=== PATIENT | female | born 1965 | race American Indian/Alaskan Native ===

== ENCOUNTER 2018-09-27 11:28 | Emergency (ER) | payer BC ==
[2018-09-27 11:51] VITALS: BP 143/109; PULSE 73; RESP 16; TEMP 97.8; O2SAT 100; BMI 29.6
--- NOTE | 2018-09-27 13:16 | RAD ---
Date of service: 09/27/2018 PROCEDURE: Left Wrist Radiographs. HISTORY: s/p fall - r/o fx COMPARISON: None. FINDINGS: BONES: Normal. No fracture. JOINTS: Normal. No dislocation. SOFT TISSUES: Normal. OTHER FINDINGS: None. IMPRESSION: Normal left wrist radiographs.
--- NOTE | 2018-09-27 13:17 | RAD ---
Date of service: 09/27/2018 PROCEDURE: Radiographs of the Left Forearm HISTORY: s/p fall - r/o fx COMPARISON: None available. TECHNIQUE: Frontal and lateral views obtained. FINDINGS: BONES: No fracture or destructive lesion. JOINT SPACES: Unremarkable. OTHER FINDINGS: None. IMPRESSION: Unremarkable radiographs of the left forearm.
--- NOTE | 2018-09-27 16:31 | ED PDOC ---
Arrival/HPI - General Chief Complaint: Trauma Historian: Patient - History of Present Illness Narrative History of Present Illness (Text): 09/27/18 16:32 A 53 year old female presents to the emergency department complaining of pain to left wrist and forearm s/p mechanical fall from earlier this morning. Patient notes she is able to move her wrist with some pain. Patient denies any head injury, loss of consciousness, or any other complaints. PMD: Dr. Harris Time/Duration: Other (earlier this morning) Symptom Onset: Sudden Symptom Course: Unchanged Activities at Onset: Light Context: Standing Past Medical History - Provider Review Nursing Documentation Reviewed: Yes - Past History Past History: No Previous - Tetanus Immunization Tetanus Immunization: Unknown - Cardiac Hx Cardiac Disorders: Yes Hx Hypertension: Yes - Pulmonary Hx Respiratory Disorders: No - Neurological Hx Neurological Disorder: No - HEENT Hx HEENT Disorder: Yes (using glasses) - Renal Hx Renal Disorder: No - Endocrine/Metabolic Hx Endocrine Disorders: No - Hematological/Oncological Hx Blood Disorders: No - Integumentary Hx Dermatological Disorder: No - Musculoskeletal/Rheumatological Hx Falls: No - Gastrointestinal Hx Gastrointestinal Disorders: Yes (HIATAL HERNIA,ENDOSCOPY,) - Genitourinary/Gynecological Hx Genitourinary Disorders: No - Psychiatric Hx Depression: No Hx Emotional Abuse: No Hx Physical Abuse: No Hx Substance Use: No - Surgical History Hx Hysterectomy: Yes - Anesthesia Hx Anesthesia: Yes Hx Anesthesia Reactions: No Hx Malignant Hyperthermia: No - Suicidal Assessment Feels Threatened In Home Enviroment: No Family/Social History - Physician Review Nursing Documentation Reviewed: Yes Family/Social History: No Known Family HX Smoking Status: Never Smoked Hx Alcohol Use: No Hx Substance Use: No Hx Substance Use Treatment: No Allergies/Home Meds Allergies/Adverse Reactions: Allergies morphine Allergy (Verified 09/27/18 12:07) NAUSEA Home Medications: Home Meds Medication Instructions Recorded Confirmed Lansoprazole [Prevacid] 30 mg PO DAILY 09/27/18 09/27/18 Valsartan/Hydrochlorothiazide 1 tab PO DAILY 09/27/18 09/27/18 [Valsartan and Hydrochlorothiazide 12.5 mg-80 ] Review of Systems - Review of Systems Respiratory: absent: SOB Musculoskeletal: Other (wrist pain) Neurological: absent: Headache, Other (loss of consciousness) Physical Exam Vital Signs Reviewed: Yes Vital Signs Temp Pulse Resp BP Pulse Ox 09/27/18 11:49 97.8 F 73 16 143/109 H 100 Temperature: Afebrile Blood Pressure: Hypertensive Pulse: Regular Respiratory Rate: Normal Mental Status: Positive for: Alert and Oriented X 3 ( ) - Systems Exam Head: Present: Atraumatic, Normocephalic Pupils: Present: PERRL Extroacular Muscles: Present: EOMI Conjunctiva: Present: Normal Respiratory/Chest: Present: Clear to Auscultation, Good Air Exchange. No: Respiratory Distress, Accessory Muscle Use Cardiovascular: Present: Regular Rate and Rhythm, Normal S1, S2. No: Murmurs Abdomen: No: Tenderness, Distention, Peritoneal Signs Upper Extremity: Present: NORMAL PULSES, Swelling (slight swelling to left wrist and distal left forearm), Capillary Refill < 2s Lower Extremity: Present: Normal Inspection. No: Edema Neurological: Present: GCS=15, CN II-XII Intact, Speech Normal Skin: Present: Warm, Dry, Normal Color. No: Rashes Psychiatric: Present: Alert, Oriented x 3, Normal Insight, Normal Concentration Medical Decision Making ED Course and Treatment: 09/27/18 16:32 Impression: 53 year old female presenting to the emergency room complaining of pain to the left wrist and forearm s/p mechanical fall. Plan: -- Splint Wrist 8" routine -- Reassess and disposition Prior Visits: Notes and results from previous visits were reviewed. Progress Notes: - RAD Interpretation Radiology Orders: 09/27/18 11:53 FOREARM LEFT [RAD] Stat WRIST, LEFT 3 VIEWS [RAD] Stat - Scribe Statement The provider has reviewed the documentation as recorded by the Gwendolynibda Marrero All medical record entries made by the Scribe were at my direction and personally dictated by me. I have reviewed the chart and agree that the record accurately reflects my personal performance of the history, physical exam, medical decision making, and the department course for this patient. I have also personally directed, reviewed, and agree with the discharge instructions and disposition. Disposition/Present on Arrival - Present on Arrival Any Indicators Present on Arrival: No History of DVT/PE: No History of Uncontrolled Diabetes: No Urinary Catheter: No History of Decub. Ulcer: No History Surgical Site Infection Following: None - Disposition Have Diagnosis and Disposition been Completed?: Yes Diagnosis: Left wrist sprain Disposition: HOME/ ROUTINE Disposition Time: 12:45 Condition: GOOD Discharge Instructions (ExitCare): Wrist Sprain (DC) Additional Instructions: MÓNICA LANDEROS, thank you for letting us take care of you today. The emergency medical care you received today was directed at your acute symptoms. If you were prescribed any medication, please fill it and take as directed. It may take several days for your symptoms to resolve. Return to the Emergency Department if your symptoms worsen, do not improve, or if you have any other problems. Please contact your doctor or call one of the physicians/clinics you have been referred to that are listed on the Patient Visit Information form that is included in your discharge packet. Bring any paperwork you were given at discharge with you along with any medications you are taking to your follow up visit. Our treatment cannot replace ongoing medical care by a primary care provider outside of the emergency department. Thank you for allowing the [facility] team to be part of your care today. Follow up with your primary care doctor in 5-7 days if symptoms still persist. Prescriptions: Ibuprofen [Motrin] 600 mg PO Q6 PRN #20 tab PRN Reason: Pain, Moderate (4-7) Forms: [employer] ([place]ian)
== END 2018-09-27 13:30 | disposition home or self-care (01) ==
LOC: ED 11:28
DX: S63.502A Unspecified sprain of left wrist, initial encounter (principal); W19.XXXA Unspecified fall, initial encounter; I10 Essential (primary) hypertension

== ENCOUNTER 2018-11-21 23:10 | Emergency (ER) | payer BC ==
[2018-11-21 23:11] VITALS: BMI 29.6
--- NOTE | 2018-11-21 23:33 | ED PDOC ---
Arrival/HPI - General Chief Complaint: Back Pain Time Seen by Provider: 11/21/18 23:17 Historian: Patient - History of Present Illness Narrative History of Present Illness (Text): 11/22/18 00:10 53 y/o female with PMH of HTN presents to the ED c/o left sided back pain x 2 days. Pain is located to the left lower back and flank that radiates to her mid lower back and occasionally up into the thoracic paraspinal muscles. States the pain feels like a cramping pain. Has not taken any medication for pain. Denies trauma/injury, SOB, chest pain, abdominal pain, urinary symptoms, vaginal bleeding or discharge, nausea, vomiting, saddle anesthesia, bowel/bladder incontinence, numbness, weakness, paresthesias, or any other associated symptoms. Past Medical History - Provider Review Nursing Documentation Reviewed: Yes - Past History Past History: No Previous - Infectious Disease Hx of Infectious Diseases: None - Tetanus Immunization Tetanus Immunization: Unknown - Cardiac Hx Cardiac Disorders: Yes Hx Hypertension: Yes - Pulmonary Hx Respiratory Disorders: No - Neurological Hx Neurological Disorder: No - HEENT Hx HEENT Disorder: Yes (using glasses) - Renal Hx Renal Disorder: No - Endocrine/Metabolic Hx Endocrine Disorders: No - Hematological/Oncological Hx Blood Disorders: No - Integumentary Hx Dermatological Disorder: No - Musculoskeletal/Rheumatological Hx Falls: No - Gastrointestinal Hx Gastrointestinal Disorders: Yes (HIATAL HERNIA,ENDOSCOPY,) - Genitourinary/Gynecological Hx Genitourinary Disorders: No - Psychiatric Hx Depression: No Hx Emotional Abuse: No Hx Physical Abuse: No Hx Substance Use: No - Surgical History Hx Hysterectomy: Yes - Anesthesia Hx Anesthesia: Yes Hx Anesthesia Reactions: No Hx Malignant Hyperthermia: No - Suicidal Assessment Feels Threatened In Home Enviroment: No Family/Social History - Physician Review Nursing Documentation Reviewed: Yes Family/Social History: No Known Family HX Smoking Status: Never Smoked Hx Alcohol Use: No Hx Substance Use: No Hx Substance Use Treatment: No Allergies/Home Meds Allergies/Adverse Reactions: Allergies morphine Allergy (Verified 11/21/18 23:29) NAUSEA Home Medications: Home Meds Medication Instructions Recorded Confirmed Lansoprazole [Prevacid] 30 mg PO DAILY 09/27/18 09/27/18 Valsartan/Hydrochlorothiazide 1 tab PO DAILY 09/27/18 09/27/18 [Valsartan and Hydrochlorothiazide 12.5 mg-80 ] Review of Systems - Review of Systems Constitutional: Normal. absent: Fevers Eyes: Normal. absent: Vision Changes Respiratory: Normal. absent: SOB, Cough Cardiovascular: Normal. absent: Chest Pain, Palpitations, Syncope Gastrointestinal: Normal. absent: Abdominal Pain, Nausea, Vomiting Genitourinary Female: absent: Dysuria, Frequency Musculoskeletal: Back Pain Skin: Normal. absent: Rash Neurological: Normal. absent: Headache, Dizziness Physical Exam Vital Signs Reviewed: Yes Temperature: Afebrile Blood Pressure: Normal Pulse: Regular Respiratory Rate: Normal Appearance: Positive for: Non-Toxic, Uncomfortable Pain Distress: Moderate Mental Status: Positive for: Alert and Oriented X 3 - Systems Exam Head: Present: Atraumatic, Normocephalic Pupils: Present: PERRL Extroacular Muscles: Present: EOMI Conjunctiva: Present: Normal Mouth: Present: Moist Mucous Membranes Neck: Present: Normal Range of Motion. No: Meningeal Signs Respiratory/Chest: Present: Clear to Auscultation, Good Air Exchange. No: Respiratory Distress, Accessory Muscle Use Cardiovascular: Present: Regular Rate and Rhythm, Normal S1, S2, Peripheal Pulses Present Abdomen: Present: Normal Bowel Sounds. No: Tenderness, Distention, Peritoneal S igns, Rebound, Guarding Back: Present: Paraspinal Tenderness (left thoracic and lumbar). No: CVA Tenderness, Midline Tenderness Upper Extremity: Present: Normal Inspection, Normal ROM, NORMAL PULSES, Neurovascularly Intact, Capillary Refill < 2s. No: Cyanosis, Edema, Temperature Abnormalties Lower Extremity: Present: Normal Inspection, Normal ROM, Neurovascularly Intact Neurological: Present: GCS=15, CN II-XII Intact, Speech Normal, Motor Func Grossly Intact, Normal Sensory Function, Gait Normal Skin: Present: Warm, Dry, Normal Color. No: Rashes Psychiatric: Present: Alert, Oriented x 3, Normal Insight, Normal Concentration, Normal Affect, Normal Mood Medical Decision Making ED Course and Treatment: Initial Plan: * Labs * EKG * CXR * Valium * Toradol ED attending recommends CTA dissection protocol. 01:27 Patient reports significant improvement in pain. Resting comfortably in bed in no acute distress. EKG shows NSR at 81 without any acute ischemic changes 02:30 CTA negative for dissection, shows possible gastroparesis. Bloodwork reveals WBC 11.3 without left shift, mild hyperglycemia, and mild hypokalemia. Otherwise unremarkable. Case discussed with ED attending Dr Mccarty who recommends discharge home. States no indication for UA, as pt has no urinary symptoms. Patient reports complete resolution of pain with medication. Comfortable with discharge home. Diagnostic testing results and plan of care discussed with patient. Strict instructions given regarding prescription use, importance of followup, and signs/symptoms to return to ER including worsening pain, chest pain, saddle ane sthesia, incontinence, or any other new/worsening symptoms. Pt verbalized understanding of discussion. Patient is A&Ox3, ambulating with steady gait, with vital signs stable for discharge. - Lab Interpretations Lab Results: 11/21/18 23:37 11/21/18 23:37 Lab Results 11/21/18 23:37: PT 13.2 H, INR 1.19, APTT 28.6 11/21/18 23:37: Sodium 137, Potassium 3.5 L, Chloride 101, Carbon Dioxide 25, Anion Gap 15, BUN 13, Creatinine 0.9, Est GFR ( Amer) > 60, Est GFR (Non- Af Amer) > 60, Random Glucose 162 H, Calcium 9.6, Total Bilirubin 0.5, AST 17, ALT 22, Alkaline Phosphatase 108, Total Creatine Kinase 86, Troponin I < 0.01, Total Protein 8.0, Albumin 4.3, Globulin 3.6, Albumin/Globulin Ratio 1.2, Lipase 92 11/21/18 23:37: WBC 11.3 H, RBC 4.93, Hgb 14.7, Hct 43.5, MCV 88.2, MCH 29.8, MCHC 33.8, RDW 13.4, Plt Count 270, MPV 10.3, Neut % (Auto) 59.5, Lymph % (Auto) 32.7, [place] % (Auto) 7.2 H, Eos % (Auto) 0.3 L, Baso % (Auto) 0.3, Lymph # (Auto) 3.7 H, [place] # (Auto) 0.8 H, Eos # (Auto) 0.0, Baso # (Auto) 0.03, Absolute Neuts (auto) 6.74 H I have reviewed the lab results: Yes - RAD Interpretation Narrative RAD Interpretations (Text): 11/22/18 02:15 CTA OF THE CHEST ABDOMEN AND PELVIS WITH IV CONTRAST FINDINGS: Bilateral basilar hypoventilatory pulmonary changes. Normal enhancement of the main pulmonary artery and right and left pulmonary arteries. Normal enhancement of the bilateral peripheral pulmonary arteries. There is no demonstrated pulmonary embolism. Normal thoracic aorta and visualized great vessels. There is no demonstrated aortic dissection. Normal heart and pericardium. Normal mediastinum. Normal hilar regions. Normal visualized trachea and bronchi. The lungs are well expanded. Normal pulmonary parenchyma. Normal pleura. Normal chest wall structures. Normal osseous structures. Small sliding hiatal hernia. Fluid-filled mildly distended stomach. Normal liver. Normal gallbladder and extrahepatic biliary system. Normal spleen. Normal pancreas. Normal bilateral adrenal glands. Normal size of the right kidney. There is no right renal mass. There are no right renal calculi. There is no right hydronephrosis. Normal visualized right ureter. Normal size of the left kidney. There is no left renal mass. There are no left renal calculi. There is no left hydronephrosis. Normal visualized left ureter. No other abnormality of the visualized stomach. Normal small intestine. Uncomplicated diverticulosis of the colon. The appendix is visualized and appears normal. There is no demonstrated peritoneal fluid. Normal abdominal aorta. Normal inferior vena cava. Normal retroperitoneum. Normal urinary bladder. There is no pelvic mass lesion or lymphadenopathy. There is no pelvic fluid. Normal abdominal wall. Normal osseous structures. IMPRESSION: No demonstrated pulmonary embolism or arterial dissection. Mild gastroparesis. Uncomplicated colonic diverticulosis. Electronically signed on November 22, 2018 2:12:01 AM EDT by: Ellie Valdes M.D., Certified by ABR, MSK, Neuroradiology Radiology Orders: 11/21/18 23:31 CHEST PORTABLE [RAD] Stat Metal Buffer: Radiologist - EKG Interpretation EKG Interpretation (Text): Rate 81; NSR; Normal intervals; No STEMI or other signs of acute ischemia Interpreted by ED Physician: Yes Type: 12 lead EKG - Medication Orders Current Medication Orders: Diazepam (Valium) 5 mg PO ONCE ONE; Protocol Stop: 11/21/18 23:32 Ketorolac Tromethamine (Toradol) 30 mg IVP STAT STA Stop: 11/21/18 23:31 Disposition/Present on Arrival - Present on Arrival Any Indicators Present on Arrival: No History of DVT/PE: No History of Uncontrolled Diabetes: No Urinary Catheter: No History of Decub. Ulcer: No History Surgical Site Infection Following: None - Disposition Have Diagnosis and Disposition been Completed?: Yes Diagnosis: Muscle spasm, Back pain Disposition: HOME/ ROUTINE Disposition Time: 02:30 Patient Plan: Discharge Condition: IMPROVED Discharge Instructions (ExitCare): Muscle Spasms (DC) Additional Instructions: Ibuprofen every 8 hours as needed, take with food Flexeril nightly as needed Followup with primary doctor within 2 days Return to ER with any new/worsening symptoms Prescriptions: Cyclobenzaprine [Cyclobenzaprine HCl] 10 mg PO HS PRN #7 tab PRN Reason: Muscle Spasm Ibuprofen [Motrin Tab] 600 mg PO Q8H #30 tab Referrals: Michelle Ayala MD [Staff Provider] - Follow up with primary Karel Medina MD [Staff Provider] - Follow up with primary Forms: [employer] ([place]ami), WORK NOTE
[2018-11-21 23:54] VITALS: TEMP 98
[2018-11-22 00:03] LABS: BASO # 0.03 K/mm3 (0.0-2.0); BASO % 0.3 % (0.0-3.0); EOS % 0.3 % (1.5-5.0); HEMOGLOBIN 14.7 g/dL (12.0-16.0); LYMPH # 3.7 (1.2-3.4); LYMPH % 32.7 % (22.0-35.0); MEAN CELL VOLUME 88.2 fl (80.0-105.0); MEAN CORPUSCULAR HEMOGLOBIN 29.8 pg (25.0-35.0); MEAN CORPUSCULAR HGB CONC 33.8 g/dl (31.0-37.0); MEAN PLATELET VOLUME 10.3 fl (7.0-11.0); MONO # 0.8 (0.1-0.6); MONO % 7.2 % (1.0-6.0); RBC 4.93 10^6/uL (3.5-6.1); RED CELL DISTRIBUTION WIDTH 13.4 % (11.5-14.5); WHITE BLOOD COUNT 11.3 10^3/uL (4.5-11.0)
[2018-11-22 00:07] LABS: INR 1.19; PARTIAL THROMBOPLASTIN TIME 28.6 Seconds (26.9-38.3); PROTHROMBIN TIME 13.2 SECONDS (9.4-12.5)
[2018-11-22 00:11] LABS: ALB/GLOB RATIO 1.2 (1.1-1.8); ALBUMIN 4.3 g/dL (3.0-4.8); ALT/SGPT 22 U/L (7-56); AST/SGOT 17 U/L (14-36); BLOOD UREA NITROGEN 13 mg/dL (7-21); CALCIUM 9.6 mg/dL (8.4-10.5); GFR NON-AFRICAN AMERICAN > 60; LIPASE 92 U/L (23-300)
[2018-11-22] MEDS ORDERED: Lidocaine 5% Patch TD STA (00:13)
[2018-11-22 00:22] LABS: TROPONIN I < 0.01 ng/mL
[2018-11-22 01:22] VITALS: RESP 17
[2018-11-22 02:45] VITALS: BP 122/68; PULSE 75; O2SAT 98
--- NOTE | 2018-11-22 09:26 | RAD ---
Date of service: 11/21/2018 HISTORY: back pain COMPARISON: 09/11/2015 TECHNIQUE: 1 view obtained. FINDINGS: LUNGS: No active pulmonary disease. PLEURA: No significant pleural effusion identified, no pneumothorax apparent. CARDIOVASCULAR: No aortic atherosclerotic calcification present. Normal cardiac size. No pulmonary vascular congestion. OSSEOUS STRUCTURES: No significant abnormalities. VISUALIZED UPPER ABDOMEN: Normal. OTHER FINDINGS: None. IMPRESSION: No active disease.
--- NOTE | 2018-11-22 15:06 | CT ---
PROCEDURE: CT Angiography Chest, Abdomen and Pelvis with and without intravenous contrast HISTORY: dissection protocol COMPARISON: None. TECHNIQUE: Contiguous axial images of the chest, abdomen and pelvis were obtained in the phase of aortic enhancement. A noncontrast enhanced CT of the chest was also obtained to evaluate for possible intramural thrombus. Coronal and sagittal reformats were generated. IV dose administered: 150 cc of Omni 350 Radiation dose: Total exam DLP = 1698.81 mGy-cm. This CT exam was performed using one or more of the following dose reduction techniques: Automated exposure control, adjustment of the mA and/or kV according to patient size, and/or use of iterative reconstruction technique. FINDINGS: CT ANGIOGRAPHY OF THE CHEST WITH & WITHOUT CONTRAST: AORTA (CHEST AND ABDOMEN): The thoracic and abdominal aorta are unremarkable, without aneurysm, dissection or rupture. No intramural thrombus identified in the thoracic aorta on the non-contrast ct of the chest. The celiac axis, superior mesenteric artery, inferior mesenteric artery and the renal arteries are widely patent. The pelvic arteries are unremarkable. No evidence of pulmonary embolus LUNGS: Clear. No nodule, mass or consolidation. MEDIASTINUM: Unremarkable. Normal caliber aorta and pulmonary arterial trunk. No aortic dissection. Normal size heart. LYMPH NODES: Unremarkable. PLEURA: Unremarkable. No pneumothorax. No pleural fluid. BONES: Unremarkable. OTHER FINDINGS: None. CT ANGIOGRAPHY OF THE ABDOMEN AND PELVIS WITH CONTRAST: LIVER: Unremarkable. No gross lesion or ductal dilatation. GALLBLADDER AND BILE DUCTS: Unremarkable. PANCREAS: Unremarkable. No gross lesion or ductal dilatation. SPLEEN: Unremarkable. ADRENALS: Unremarkable. No mass. KIDNEYS AND URETERS: Unremarkable. No hydronephrosis. No solid mass. VASCULATURE: Unremarkable. No aortic aneurysm. No aortic atherosclerotic calcification or mural plaque present. STOMACH AND BOWEL: Unremarkable. No obstruction. No gross mural thickening. APPENDIX: Normal appendix. PERITONEUM: Unremarkable. No free fluid. No free air. LYMPH NODES: Unremarkable. No enlarged lymph nodes. BLADDER: Unremarkable. REPRODUCTIVE: Unremarkable. BONES: No acute fracture. OTHER FINDINGS: The report concurs with the preliminary [facility] report IMPRESSION: Negative study
--- NOTE | 2018-11-22 17:59 | CARD ---
APPROVED REPORT Date of service: 11/22/2018 EKG Measurement Heart [id number] <Conclusion> Normal sinus rhythm Possible Left atrial enlargement Borderline ECG
== END 2018-11-22 02:45 | disposition home or self-care (01) ==
LOC: ED 23:10
DX: M54.9 Dorsalgia, unspecified (principal); M62.830 Muscle spasm of back; I10 Essential (primary) hypertension
CPT/HCPCS: 71045; 71275; 74175; 80053; 82550; 83690; 84484; 85025; 85610; 85730; 93005; 96374; 99283; J1885; Q9967